=== PATIENT | female | born 1985 | race Caucasian/White ===

== ENCOUNTER → 2021-05-12 08:13 | Outpatient (CLI) | payer OTHER, SELFPAY ==
[2021-05-12 10:49] LABS: Hematocrit 33.9 % (36-46); Hemoglobin 11.6 g/dL (12.0-16.0)
[2021-05-12 12:57] LABS: GTT (PREG) 1 Hour PP 50gm Dose 98 mg/dL (76-139)
== END ==
PROVIDERS: PCP Family Medicine; Referring Provider Obstetrics & Gynecology; Visit Provider Obstetrics & Gynecology
DX: Z34.83 Encounter for supervision of other normal pregnancy, third trimester (principal)
CPT/HCPCS: 36415; 82950; 85014; 85018

== ENCOUNTER → 2021-06-26 12:50 | Outpatient (CLI) | payer OTHER, SELFPAY ==
[2021-06-27 09:48] LABS: Strep Grp B PCR POS for Grp B Strep
== END ==
PROVIDERS: PCP Family Medicine; Visit Provider Obstetrics & Gynecology
DX: Z34.03 Encounter for supervision of normal first pregnancy, third trimester (principal); Z3A.36 36 weeks gestation of pregnancy
CPT/HCPCS: 87653

== ENCOUNTER 2021-07-20 18:40 | Inpatient (IN) | payer OTHER, SELFPAY ==
[2021-07-20] MEDS: DINOPROSTONE VAG (CERVIDIL) 10 MG VAG (20:22)
[2021-07-20 20:29] LABS: Add Manual Diff / Slide Review NO; Basophils Absolute Auto 0 /uL (0-100); Basophils Percent Auto 0.4 % (0-2); Eosinophils Absolute Auto 100 /uL (0-450); Eosinophils Percent Auto 1.2 % (2-4); Hematocrit 33.6 % (36-46); Hemoglobin 11.2 g/dL (12.0-16.0); Lymphocytes Absolute Auto 1700 /uL (1100-4500); Lymphocytes Percent Auto 16.6 % (25-40); Mean Corpuscular HGB Conc 33.4 % (30-36); Mean Corpuscular Hemoglobin 27.2 PG (26-34); Mean Corpuscular Volume 81.4 fL (80-100); Monocytes Absolute Auto 700 /uL (0-900); Neutrophils Absolute Auto 7700 /uL (1500-7000); Neutrophils Percent Auto 74.8 % (50-75); Platelet Count 213 X10^3/uL (150-400); Red Blood Cell Count 4.12 X10^6/uL (4.0-5.2); Red Cell Distribution Width 13.8 % (11.6-14.8); White Blood Cell Count 10.3 X10^3/uL (4.5-11.0)
[2021-07-21 05:43] LABS: COVID19 -Nasal RAPID Negative (Negative)
--- NOTE | 2021-07-21 07:59 | PM.OBHP.IH.1 ---
OB HPI Date/Time Date of admission: 07/20/21 Date Patient Seen: 07/21/21 Time Patient Seen: 07:45 History of Present Condition Chief complaint: induction of labor MEL Calculator Estimated Delivery Date Method Current WG Current Estimate 07/24/21 LMP (Certain) 39w 4d Estimated Gestational Age (weeks): 39 : 2 Para: 1 Narrative: This patient is a 35yo @39+4 presenting for elective induction of labor. The patient underwent cervical ripening overnight to achieve a peck score of 6, and reports feeling well this AM with good movement, contractions overnight, and no VB or LOF. Her has been otherwise uncomplicated, with a third trimester transfer of care. Her prior was uncomplicated with a term after induction of labor, though her daughter is now 11. She has no other contributory history. care: good care Dating criteria OB: LMP confirmed by 1st trimester US Ultrasounds: normal mid trimester US Obstetrical complications: none Medical complications OB: none Preadmission Labs Last OB Lab Results: Blood Type O Positive 07/20/21 19:45 07/20/21 Antibody Screen Negative 07/20/21 19:45 07/20/21 Hematocrit 33.6 % (36-46) L 07/20/21 19:45 07/20/21 Hemoglobin 11.2 g/dL (12.0-16.0) L 07/20/21 19:45 07/20/21 Glucose 1 Hour 98 mg/dL (76-139) 05/12/21 09:45 05/12/21 Group B Streptococcus (PCR) Pos for grp b strep H 06/26/21 12:50 06/26/21 -: Chlamydia screen: negative, Gonorrhea screen: negative and Urine: negative Genetic Screens: Cell-free DNA: Normal External Labs -: Urine: negative Prior (ies) Past Pregnancies Del. Date GA/Weeks Labor Lgth Wt Sex Route Outcome Anesthesia Place Delv Breastfeed Preg Comp Name 05/13/10 38 9 6 lb 8 oz Female vaginal live - full term epidural [place], [place] Pumped - 2-3 months none Breelee Beaulac Delivery Date: 05/13/10 Last Updated by: Makenzie Marcelo R.N. Induced was 4 cm, daughter jaundice and needed treatment Evaluation Evaluation Baseline heart rate: 135 Variability: Moderate (11-25) monitor accelerations: Present Monitor Decelerations: Absent Category of Tracing: Reactive Status: Category l Dilation (cm): 3 Effacement (%): 50 Dilation: 3-4 cm Effacement: 40-50% station: -3 Position of cervix: mid Consistency: medium Peck score: 5 PFSH Medical History Rosacea (~2019) Surgical History H/O wisdom tooth extraction Family History Father Metabolic syndrome Hypertension Hyperlipidemia Diabetes mellitus Grandfather Hypertension Pancreatic cancer CLL (chronic lymphocytic leukemia) Grandmother Multiple myeloma Grandfather Heart disease Colon cancer Grandmother Acute lymphocytic leukemia Social History marital status: number of children: 1 household members: spouse and children lives independently: Yes caregiver/support person: Yes housing: house pets and animals: Yes (Dog) education level: high school occupational status: unemployed current occupational exposures/hazards: No seatbelt use: always water heater temp set < 120 deg: Yes working smoke detector in home: Yes fire extinguisher in home: Yes carbon monox detector in home: Yes firearms in home: Yes firearms unloaded and locked: Yes do you feel safe at home: Yes Smoking Status: Never smoker alcohol intake: former substance use type: does not use well-balanced diet: daily or most days daily servings fruits/ve-4 caffeine: Yes (Understand limitations) Type(s) of exercise: walking Meds Home Medications and Allergies Home Medications Medication Instructions Recorded Confirmed Type vitamins no.121-iron 28 tab PO DAILY tab 06/16/21 07/18/21 History mg-folic acid 800 mcg tablet Allergies Allergy/AdvReac Type Severity Reaction Status Date / Time hydrocodone AdvReac Intermediate Nausea Verified 07/18/21 15:34 oxycodone AdvReac Intermediate Nausea Verified 07/18/21 15:34 OB Exam Resp Effort & Inspection: normal respiratory effort Auscultation: clear to auscultation bilaterally Cardio Rate: regular rate Rhythm: regular rhythm GI Palpation: Yes soft and No tender External Female Exam: Yes normal external appearance Objective Labs Result Diagrams: 07/20/21 19:45 Labs: Laboratory Results - last 24 hr 07/20/21 07/20/21 07/20/21 19:45 19:45 19:45 WBC 10.3 RBC 4.12 Hgb 11.2 L Hct 33.6 L MCV 81.4 MCH 27.2 MCHC 33.4 RDW 13.8 Plt Count 213 Neut % (Auto) 74.8 Lymph % (Auto) 16.6 L [place] % (Auto) 7.0 Eos % (Auto) 1.2 L Baso % (Auto) 0.4 Neut # (Auto) 7700 H Lymph # (Auto) 1700 [place] # (Auto) 700 Eos # (Auto) 100 Baso # (Auto) 0 SARS-CoV-2 (PCR) Negative Blood Type O Positive Antibody Screen Negative Assessment and Plan Assessment and Plan Assessment and Plan narrative: This patient is admitted for elective induction of labor. We discussed pitocin per protocol given her advanced cervical dilation. The patient was encouraged to switch positions frequently to encouraged the vertex to become well applied to the cervix. - pitocin per protocol - cEFM, toco - penicillin per protocol due to GBS+ - EFW 7#8 - Anticipate
[2021-07-21] MEDS: PENICILLIN G POTASSIUM 5,000,000 UNIT in DEXTROSE 5% IN WATER 250 ML IV (08:18)
[2021-07-21] MEDS: LACTATED RINGERS 1,000 ML 100 ML IV ×3 (08:18→18:56)
[2021-07-21] MEDS: OXYTOCIN PREMIX 30 UNIT/500 ML PLAST..BAG IV (09:12)
[2021-07-21 09:21] VITALS: BP 132/54
[2021-07-21] MEDS: PENICILLIN G POTASSIUM 3,000,000 UNIT/50 ML FROZ.PIGGY 100 UNIT IV ×2 (11:56→16:29)
--- NOTE | 2021-07-21 13:15 | PM.OBPNLAB ---
Date/Time Date Patient Seen: 07/21/21 Time Patient Seen: 13:15 Pain Control Pain control: tolerating well Comments: VSS, patient doing well. Pelvic Exam Dilation (cm): 3 Effacement (%): 50 station: -3 Amniotic membrane status: Intact Comments: vertex not well applied, LOT on ultrasound with spine anterior. Contractions Pitocin rate (mU/min): 6 Contraction frequency (min): 2 Status status: Category l Heart Rate Baseline: 130 Monitor Accelerations: Present Monitor Decelerations: Absent Monitor Variability: Moderate Assessment and Plan Assessment: induction ongoing Plan: continuous present management Comments: Frequent repositioning to convert vertex to OA.
--- NOTE | 2021-07-21 16:03 | PM.OBPNLAB ---
Date/Time Date Patient Seen: 07/21/21 Time Patient Seen: 03:30 Pain Control Pain control: tolerating well Pelvic Exam Dilation (cm): 3 Effacement (%): 50 station: -3 Amniotic membrane status: Intact Comments: exam unchanged Contractions Pitocin rate (mU/min): 9 Contraction frequency (min): 2 Status status: Category l Heart Rate Baseline: 125 Monitor Accelerations: Present Monitor Decelerations: Absent Monitor Variability: Moderate Assessment and Plan Assessment: induction ongoing Plan: continuous present management
[2021-07-21] MEDS: FENT 2MCG/ML BUPIV 0.125% EPI 200 MCG/100 ML PLAST..BAG 8 MCG EPIDURAL (17:15)
--- NOTE | 2021-07-21 17:39 | PM.OBPNLAB ---
Date/Time Date Patient Seen: 07/21/21 Time Patient Seen: 17:39 Pain Control Pain control: epidural Pelvic Exam Dilation (cm): 9 Effacement (%): 100 station: +2 Amniotic membrane status: Ruptured (blood tinged) Contractions Pitocin rate (mU/min): 6 Contraction frequency (min): 2 Status status: Category ll Heart Rate Baseline: 135 Monitor Accelerations: Present (+scalp stim) Monitor Decelerations: Variable Monitor Variability: Moderate Assessment and Plan Assessment: active labor Plan: continuous present management Comments: Patient making rapid change, variables improved with semi upright positioning, anticipate
--- NOTE | 2021-07-21 17:49 | P.PCN_ITS ---
Regional Block Pre-procedure Procedure: Continuous Lumbar Epidural for L&D Attending OB provider: Nata Mcgill PMH/GEOVANNA narrative: term induction, no complications. ASA Class: II Labs: Hct 33.6 % (36-46) L 07/20/21 19:45 Plt Count 213 X10^3/uL (150-400) 07/20/21 19:45 Medications: Current Medications Generic Name Dose Route Start Last Admin Trade Name Freq PRN Reason Stop Dose Admin Carboprost Tromethamine 250 mcg 07/21/21 07:59 Carboprost 250 Mcg/Ml Ampul IM Q90M PRN Bleeding Lactated Ringer's 1,000 mls @ 100 mls/hr 07/20/21 19:15 07/21/21 08:18 Lactated Ringers IV 100 mls/hr CONT DANIELLE Administration Lactated Ringer's 1,000 mls @ 100 mls/hr 07/21/21 08:00 Lactated Ringers IV CONT DANIELLE Oxytocin/Lactated Ringer's 30 unit in 500 mls @ 200 mls/hr 07/21/21 07:59 Oxytocin Premix IV CONT PRN Bleeding Protocol Tranexamic Acid 1,000 mg/ 100 mls @ 200 mls/hr 07/21/21 07:59 Sodium Chloride IV NOW PRN Bleeding Penicillin G Potassium 3,000,000 unit in 50 mls @ 100 mls/hr 07/21/21 12:00 07/21/21 16:29 Penicillin G Potassium IV 100 mls/hr Q4H DANIELLE Administration Oxytocin/Lactated Ringer's 30 unit in 500 mls @ 3 mls/hr 07/21/21 08:00 07/21/21 09:12 Oxytocin Premix IV 3 milliunit/min TITRATE DANIELLE 3 mls/hr Administration Protocol 3 MILLIUNIT/MIN Methylergonovine Maleate 0.2 mg 07/21/21 07:59 Methylergonovine 0.2 Mg Tablet PO Q6HR PRN Heavy Bleeding Methylergonovine Maleate 0.2 mg 07/21/21 07:59 Methylergonovine 0.2 Mg/Ml Vial IM NOW PRN Bleeding Misoprostol 800 mcg 07/21/21 07:59 Misoprostol 200 Mcg Tablet MS NOW PRN Bleeding Misoprostol 1,000 mcg 07/21/21 07:59 Misoprostol 200 Mcg Tablet MS NOW PRN Bleeding Misoprostol 400 mcg 07/21/21 07:59 Misoprostol 200 Mcg Tablet SL NOW PRN Bleeding Oxytocin 10 unit 07/21/21 07:59 Oxytocin 10 Unit/Ml Vial IM NOW PRN Bleeding Zolpidem Tartrate 5 mg 07/20/21 19:11 Zolpidem 5 Mg Tablet PO BEDTIME PRN Sleep Allergies: Allergies Allergy/AdvReac Type Severity Reaction Status Date / Time hydrocodone AdvReac Intermediate Nausea Verified 07/18/21 15:34 oxycodone AdvReac Intermediate Nausea Verified 07/18/21 15:34 Procedure Insertion date: 07/21/21 Insertion time: 17:55 Prep/Local: betadine x3 and 1% lidocaine Interspace: L3-4 Patient position: sitting Needle: 18 gauge [employer] (CSE: 27g Pencan through Hustead, clear CSF, 1mL 0.25% bupiv MPF) Loss of resistance with: saline JOHANNA at (cm): 6 Insertion: No CSF, Yes Blood, No Paresthesia with insertion, No Paresthesia with injection and Yes Test dose reaction Initial Medications TEST DOSE time: 17:00 TEST DOSE: 1.5% lidocaine with epinephrine 1:200k (mL): 3 BOLUS DOSE time: 17:05 BOLUS DOSE (mL): 3 BOLUS DOSE med: other (infusate) Infusion Initial rate (mL/hr): 8 Subsequent interventions: Catheter pulled (+ test dose). Procedure repeated L2- 3. JOHANNA saline at 5cm, 27g Pencan through Hustead, dural puncture with clear CSF. Catheter to 10cm at skin, no paresthesia, no blood, negative test dose 3mL 1.5% lido with epi 1:200,000. Bolus 3mL of infusate. Post-procedure Anesthesia time START: 16:47 Anesthesia time END: 19:38 Post-procedure Anesthesia Assessment: Yes CV function: HR/BP stable, Yes Resp function: RR/sat/airway adequate, Yes Mental status appropriate and No Anesthesia complications
[2021-07-21] MEDS: miSOPROStoL 200 MCG TABLET 1000 MCG PR (19:42)
--- NOTE | 2021-07-21 20:06 | PM.OBPRVD ---
Events: Labor Induction Labor & Delivery Delivery date: 07/21/21 Intrapartal Events: Acceleration and Deceleration Cervical ripening method: per Cervidil protocol Induction method: per pitocin protocol Delivery augmentation: rupture of membranes Delivery monitor: external FHT and external uterine Route of delivery: L&D Laceration Description: Perineal - 1st Degree and Vaginal - 1st Degree Delivery repair: vicryl Estimated blood loss (mL): 250 Anesthesia Type: Epidural Narrative: This patient was admitted for elective induction of labor. She underwent cervical ripening with cervidil, and after a prolonged 1st stage on pitocin, progressed rapidly through the active stage of labor. After a short 2nd stage, she was delivered of a healthy baby boy, apgars 8+9, weight 7#11. A loose nuchal cord was reduced at the perineum. The shoulders delivered with ease. The patient had had increased vaginal bleeding after AROM, and the placenta delivered shortly after the baby along with 100ccs of clot. The patient's transiently increased vaginal bleeding and clot accumulation responded to fundal massage, pitocin per protocol, and 1000mcg of rectal cytotec. Vaginal and perineal 1st degree lacerations were repaired with 3-0 vicryl in an interrupted fashion where necessary for hemostasis. There were no other complications in the immediate period. Baby 1: Infant gender: Male Presentation: vertex Position: Left Occiput Anterior Placenta delivery description: Spontaneous Cord Vessel Description: Nuchal Cord score (1 min): 8 score (5 min): 8 weight: 7 lb 11 oz Plan for aftercare: Routine care
[2021-07-21 22:59] VITALS: TEMP 37.4
[2021-07-21] MEDS: IBUPROFEN 600 MG TABLET PO (22:59)
[2021-07-21] MEDS: DERMOPLAST SPRAY 20% 60 ML 1 SPRAY TOP (23:00)
[2021-07-21 23:50] VITALS: TEMP 38.6
[2021-07-21] MEDS: ACETAMINOPHEN 325 MG TABLET 650 MG PO (23:50)
[2021-07-21] MEDS: LANOLIN OINT 7 GM 1 APPLIC TOP (23:51)
[2021-07-22] MEDS: PRENATAL VIT,CALC/IRON/FOLIC 1 TABLET 1 TAB PO (08:47)
[2021-07-22 09:21] LABS: Add Manual Diff / Slide Review NO; Basophils Absolute Auto 0 /uL (0-100); Basophils Percent Auto 0.3 % (0-2); Eosinophils Absolute Auto 100 /uL (0-450); Eosinophils Percent Auto 0.5 % (2-4); Hematocrit 31.6 % (36-46); Hemoglobin 10.4 g/dL (12.0-16.0); Lymphocytes Absolute Auto 1200 /uL (1100-4500); Lymphocytes Percent Auto 9.8 % (25-40); Mean Corpuscular HGB Conc 32.9 % (30-36); Mean Corpuscular Hemoglobin 26.7 PG (26-34); Mean Corpuscular Volume 81.1 fL (80-100); Monocytes Absolute Auto 800 /uL (0-900); Monocytes Percent Auto 6.5 % (3-14); Neutrophils Absolute Auto 9800 /uL (1500-7000); Neutrophils Percent Auto 82.9 % (50-75); Platelet Count 182 X10^3/uL (150-400); Red Cell Distribution Width 14.1 % (11.6-14.8); White Blood Cell Count 11.8 X10^3/uL (4.5-11.0)
--- NOTE | 2021-07-22 15:14 | PM.OBDS.1 ---
Discharge Providers Provider Date of admission: 07/20/21 18:40 Discharge Date: 07/22/21 Primary care physician: Faraht Myers MD Consults: 07/22/21 20:03 Consult to Tunnel Mucker Routine Comment: Discharge provider: Nata Mcgill MD Summary Hospital Course Date Patient Seen: 07/22/21 Time Patient Seen: 08:30 Diagnoses: vaginal delivery Hospital Course: This patient is a 35yo now P2 admitted for elective inducton of labor. She underwent cervical ripening and IOL with pitocin and AROM, and after a short 2nd stage was delivered of a healthy baby boy as detailed in the delivery note. She had a postoperative fever without associated tachycardia or symptoms of endometritis, UTI, or other infection, and had received a dose of misoprostol. She was discharged on PPD#1 after remaining stable and afebrile with no unusual pospartum increase in WBC. Peripartum Data Infant Delivery Method: Natural Vaginal Laceration Description: Perineal - 1st Degree and Vaginal - 1st Degree complications: none [place] 1: Gender: Male Disposition of : home Status at Discharge Cognitive/behavioral status at discharge: oriented Functional status at discharge: independent ambulation Overall status at discharge: patient is progressing back to baseline Time Spent with Patient Time attestation: Total time spent providing and/or coordinating discharge services: Objective Labs Result Diagrams: 07/22/21 09:12 Labs: Laboratory Results - last 24 hr 07/22/21 09:12 WBC 11.8 H RBC 3.90 L Hgb 10.4 L Hct 31.6 L MCV 81.1 MCH 26.7 MCHC 32.9 RDW 14.1 Plt Count 182 Neut % (Auto) 82.9 H Lymph % (Auto) 9.8 L [place] % (Auto) 6.5 Eos % (Auto) 0.5 L Baso % (Auto) 0.3 Neut # (Auto) 9800 H Lymph # (Auto) 1200 [place] # (Auto) 800 Eos # (Auto) 100 Baso # (Auto) 0 Exam Vital Signs (past 8 hours): 106/64, HR 81, T 98.6F Narrative Exam Narrative: Patient reports feeling well. No pain, mild lochia, tolerating PO, voiding, passing flatus. No UTI symptoms, no pelvic or abdominal pain, no SOB, no other symptoms. Const General: cooperative, healthy appearing, comfortable and well groomed Resp Effort & Inspection: normal respiratory effort Auscultation: clear to auscultation bilaterally Cardio Rate: regular rate Rhythm: regular rhythm GI Palpation: soft and No tender Other: Fundus firm, just below u Extrem General: normal to inspection Discharge Plan Discharge Plan Patient Disposition: Home Discharge orders & Medications Prescriptions: Continued PNV [id number] acid 28 mg iron- 800 mcg tablet 1 tab PO DAILY 0RF Follow up/Referrals: Nata Mcgill MD [Physician] - (please f/u w/ Dr. Mcgill on September 01 @ 11am for your appt) Diet/Activity/Treatments Diet: Regular Activity: Nothing in the vagina for 6 weeks. Avoid lifting more than 10 pounds for 6 weeks. If you have increased bleeding soaking more than 2 pads/hr for two hours, fevers, chills, headaches, visual changes, trouble breathing, or any other symptoms or concerns, call or come to the emergency department. Skin/Wound/Dressing Care Report to your healthcare provider any signs of infection, such as:: chills, fever, night sweats, increased pain, unusual drainage and unusual redness Visit Report/Discharge Packet Stand Alone Forms: Discharge: Care Discharge Data Primary Care Provider: Farhat Myers
== END 2021-07-22 17:55 | disposition home or self-care (01) | DRG 806 ==
PROVIDERS: Admitting Provider Obstetrics & Gynecology; PCP Family Medicine; Referring Provider Obstetrics & Gynecology; Visit Provider Obstetrics & Gynecology
DX: O69.81X0 Labor and delivery complicated by cord around neck, without compression, not applicable or unspecified (principal); O86.4 Pyrexia of unknown origin following delivery; Z37.0 Single live birth; O70.0 First degree perineal laceration during delivery; Z3A.39 39 weeks gestation of pregnancy
CPT/HCPCS: 01967; 36415; 59050; 59200; 59410; 85025; 86850; 86900; 86901; 87086; 87635; C9803; G0379; J2540; J2590; S0191